=== PATIENT | female | born 1990 | race Two or more races ===

== ENCOUNTER 2017-04-23 13:27 | Emergency (ER) | payer SELFPAY, MEDICAID | END 2017-04-23 18:05 | disposition home or self-care (01) | LOC: FTE 13:27 | DX: R42 Dizziness and giddiness (principal) | CPT/HCPCS: 99282 ==

== ENCOUNTER 2018-07-13 20:05 | Emergency (ER) | payer SELFPAY | END 2018-07-14 00:25 | disposition left against medical advice (07) | LOC: FTE 20:05 | DX: Z53.21 Procedure and treatment not carried out due to patient leaving prior to being seen by health care provider (principal) ==